=== PATIENT | male | born 1945 | race Caucasian/White ===

== ENCOUNTER → 2017-11-11 | Outpatient (CLI) | payer MEDICARE, OTHER ==
[~2017-11-11] MED LIST: BACDS PO; CIPR500S3 PO; DOC100 PO; DOCU-416 PO; LEV500 PO; LOR5 PO; MULT1TAB54 PO; OXYC-865 PO; PER PO; PHEN-530 PO; PHEN200T32 PO; PHENA200 PO; TOLT2CAP7 PO; TOLT4CAP13 PO
== END ==
LOC: LAB 14:18
PROVIDERS: ATTEND Urology
DX: R97.20 Elevated prostate specific antigen [PSA] (principal)
CPT/HCPCS: 36415; 84153

== ENCOUNTER → 2017-11-12 | Outpatient (REF) | payer MEDICARE, OTHER | LOC: ZZSENDIN 11:05 | PROVIDERS: ATTEND Urology | DX: C67.9 Malignant neoplasm of bladder, unspecified (principal) | CPT/HCPCS: 88108 ==